=== PATIENT | male | born 1950 | race Caucasian/White ===

== ENCOUNTER 2025-05-19 07:52 | Emergency (ER) | payer OTHER, MEDICAID ==
[~2025-05-19] VITALS: Ht 177.8 cm; Wt 90.0 kg
[~2025-05-19 07:52] MED LIST: AMLODIPINE PO; ASPIRIN PO; FOLIC ACID PO; LISINOPRIL PO; Levothyroxine Sodium PO; METOPROLOL PO; PROVASTATIN PO
[2025-05-19 07:53] VITALS: O2SAT 99
[2025-05-19 08:19] LABS: BASOPHILS % 0.9 % (0.0-2.0); EOSINOPHILS % 1.1 % (0.0-5.0); HEMATOCRIT. 37.6 % (42.0-52.0); HEMOGLOBIN. 12.4 g/dL (14.0-18.0); LYMPHOCYTES % 48.0 % (20.0-50.0); MEAN PLATELET VOLUME 8.9 fl (7.4-10.4); MONOCYTES % 10.1 % (2.0-8.0); NEUTROPHILS % 39.9 % (40.0-76.0); PLATELET 174 x1000/uL (130-400); RED BLOOD CELL COUNT 4.11 mill/uL (4.7-6.1); RED CELL DISTRIBUTION WIDTH 14.4 % (11.6-14.6)
[2025-05-19 08:37] LABS: CREATININE 1.1 mg/dL (0.6-1.3); UREA NITROGEN BLOOD 11 mg/dL (9-23)
[2025-05-19 08:39] LABS: ASPARTATE AMINOTRANSFERASE 24 IU/L (<34); BILIRUBIN DIRECT 0.2 mg/dL (<=3.0); BILIRUBIN TOTAL 0.7 mg/dL (0.1-1.0); PROTEIN TOTAL 6.4 g/dL (6.0-8.3)
[2025-05-19 08:41] LABS: TROPONIN I HIGH SENSITIVITY 128 ng/L (3.0-53)
[2025-05-19] MEDS ORDERED: AMIODARONE 360MG/200ML 200 ML IV SCH (09:30)
[2025-05-19] MEDS: MAGNESIUM GLUCONATE 500MG TABLET PO SCH (09:30)
[2025-05-19] MEDS: POTASSIUM CHLORIDE 20MEQ/PACKET PO ONE (09:38)
[2025-05-19] MEDS: AMIODARONE 150MG/100ML PREMIX IV NR (09:57)
[2025-05-19] MEDS: AMIODARONE 360MG/200ML D5W PREMIX IV SCH (10:43)
[2025-05-19 11:55] VITALS: BP 117/82; PULSE 62; RESP 13; TEMP 36.7; O2SAT 96
== END 2025-05-19 12:17 | disposition short-term general hospital (02) ==
LOC: ER 07:52
DX: I47.20 Ventricular tachycardia, unspecified (principal); E87.6 Hypokalemia; E83.42 Hypomagnesemia; I11.9 Hypertensive heart disease without heart failure; I25.2 Old myocardial infarction; Z95.0 Presence of cardiac pacemaker
CPT/HCPCS: 99285; 96365; 71045; 96366; 80076; 80048; 83735; 85025; 84484; 36415; 93005; J0282 ×2; A4606